=== PATIENT | female | born 1975 | race Caucasian/White ===

== ENCOUNTER 2018-09-08 13:56 | Emergency (ER) | payer OTHER ==
--- NOTE | 2018-09-08 14:07 | UC ---
Back Pain HPI - HPI Summary HPI Summary: 42 yo female presents with with left flank pain radiating into LLQ since last night. She tells me that she has a hx of kidney stones, but this doesn't quite feel the same. She feels that when she urinates she has a burning sensation and that she is not emptying her bladder. Her pain began suddenly last night without injury. She did have popcorn last night at the movie theater. Currently she feels "bloated" and like passing gas would help her discomfort. Her last BM was yesterday morning, feels like she has to go, but cannot currently. She does not get her period anymore and denies vaginal discharge or bleeding. She does not have an appetite due to pain. Denies fever, chills, recent illness, SOB, chest pain, n/v. - History of Current Complaint Stated Complaint: LOWER BACK PAIN Time Seen by Provider: 09/08/18 14:06 Hx Obtained From: Patient Onset/Duration: Sudden Onset Severity Initially: Severe Severity Currently: Severe Pain Intensity: 7 Pain Scale Used: 0-10 Numeric - Allergies/Home Medications Allergies/Adverse Reactions: Allergies Allergy/AdvReac Type Severity Reaction Status Date / Time iv contrast dye Allergy Anaphylatic Uncoded 09/08/18 14:12 Shock Home Medications: Home Medications Acetaminophen TAB* [Tylenol TAB*] 650 mg PO Q4H PRN 09/08/18 [History Confirmed 09/08/18] PMH/Surg Hx/FS Hx/Imm Hx - Additional Past Medical History Additional PMH: Kidney stones - Surgical History Surgical History: None - Family History Known Family History: Positive: None - Social History Occupation: Employed Full-time Lives: With Family Alcohol Use: Occasionally Substance Use Type: None Smoking Status (MU): Never Smoked Tobacco Review of Systems Constitutional: Negative Skin: Negative Respiratory: Negative Cardiovascular: Negative Gastrointestinal: Abdominal Pain - LLQ Genitourinary: Dysuria, Other - left flank pain Motor: Negative Musculoskeletal: Negative Neurological: Negative Psychological: Negative All Other Systems Reviewed And Are Negative: Yes Physical Exam - Summary Physical Exam Summary: GENERAL: NAD. Moderate pain distress. Unable to sit still due to discomfort SKIN: No rashes, sores, lesions, or open wounds. NECK: Supple. Nontender. No lymphadenopathy. CHEST: CTAB. No r/r/w. No accessory muscle use. Breathing comfortably and in no distress. CV: RRR. Without m/r/g. Pulses intact. Cap refill <2seconds ABDOMEN: Soft. Mild LLQ TTP. No distention or guarding. Mild left CVA/flank TTP. Bowel sounds present MSK: NTTP over lumbar paraspinal muscles. Negative SLR. Negative UYMIKO for back pain b/l. Strength 5/5 B/L LEs including dorsiflexion and plantar flexion. FROM B/L LEs. No edema. NEURO: Alert. Sensations intact B/L LEs L3-S1. PSYCH: Age appropriate behavior. Triage Information Reviewed: Yes Vital Signs: Vital Signs: Temp Pulse Resp BP Pulse Ox 97.5 F 65 16 127/81 96 09/08/18 14:01 09/08/18 14:01 09/08/18 14:01 09/08/18 14:01 09/08/18 14:01 Laboratory Tests 09/08/18 14:17 POC Urine Color Yellow POC Urine Clarity Clear POC Urine pH 5.5 POC Ur Specif [place] >= 1.030 POC Urine Protein Negative POC Ur Glucose (UA) Negative POC Urine Ketones Negative POC Urine Blood Negative POC Urine Nitrite Negative POC Urine Bilirubin Negative POC Urine Urobilinogen 1.0 POC U Leukocyte Esteras Negative Vital Signs Reviewed: Yes Back Pain Course/Dx - Course Course Of Treatment: She has not taken anything for her discomfort today. She was given 60mg IM toradol and a CT ab/pelvis w/o contrast was ordered for suspicion of kidney stone vs diverticulitis. Pt has a hx of anaphylaxis to IV contrast dye. CT: IMPRESSION: 1. SMALL NONOBSTRUCTIVE STONE OF THE LOWER POLE OF THE RIGHT KIDNEY. 2. LEFT OVARIAN CYST. 3. FOCAL INFLAMMATORY CHANGE OF THE RIGHT POSTERIOR FLANK IN THE SUBCUTANEOUS SOFT. TISSUES, OF UNCERTAIN CLINICAL SIGNIFICANCE. On re-eval; mild relief of pain with toradol, but still unable to sit still due to pain. Discussed with Dr. Collazo. I have a mild suspicion for an ovarian torsion vs rupture of her ovarian cyst. Will order for U/S at this time. Call from Dr. Shah - he notes that the uterus is bulbous appearing and is suspecting fibroids or adenomyosis. Offical US read: IMPRESSION : Heterogeneous uterus consistent with myomatous change without discrete. fibroid. Complex cyst in the left ovary measured to 2.8 cm. Doppler flow is noted in both ovaries. The US tech tells me that during the transvaginal exam, pt had left cervical motion tenderness that reproduced her left flank pain. I discussed this with the pt and she verified this pain. She is refusing a pelvic exam at this time as she just had the ultrasound and says she has no discharge or abnormal vaginal symptoms. She does tell me that 2 weeks ago she had a routine PAP done by her PCP which was normal per pt. 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 She is declining a pelvic exam or GC/C testing today, but I will treat her with doxycycline and flagyl to cover for PID. Strongly advised to go to the ED if she develops a fever or worsening symptoms, otherwise f/u with her OBGYN next week for a recheck. Pt voiced understanding and is agreeable to the plan. - Differential Dx/Diagnosis Provider Diagnoses: Left flank pain. Left pelvic pain. Hx of kidney stone Discharge - Sign-Out/Discharge Documenting (check all that apply): Patient Departure All imaging exams completed and their final reports reviewed: Yes - Discharge Plan Condition: Stable Disposition: HOME Prescriptions: DOXYcycline CAP(*) [DOXYcycline 100MG CAP(*)] 100 mg PO BID #28 cap metroNIDAZOLE [Flagyl 500 MG TAB] 500 mg PO BID #28 tab Patient Education Materials: Pelvic Inflammatory Disease (DC) Referrals: Yarelis CHRISTINE,Cookie Mendoza [Primary Care Provider] - Additional Instructions: If you develop a fever, shortness of breath, chest pain, new or worsening symptoms - please call your PCP or go to the ED. 1) Please call your OBGYN to schedule a follow up appointment as soon as possible 2) If you develop new or worsening symptoms - please go to the ER - Billing Disposition and Condition Condition: STABLE Disposition: Home
[2018-09-08] MEDS ORDERED: Ketorolac INJ* 60 MG/2 ML VIAL IM ONE (14:30)
--- NOTE | 2018-09-08 15:15 | RAD ---
CLINICAL HISTORY: LLQ pain and left flank pain. ?stone vs divertic COMPARISON: None TECHNIQUE: Multiple contiguous axial CT scans were obtained of the abdomen and pelvis, without intravenous contrast enhancement. Coronal and sagittal multiplanar reformations are submitted for review. Oral contrast was not administered. FINDINGS: LUNG BASES: The lung bases are clear. LIVER: The liver is normal in shape, size, contour, and attenuation. BILE DUCTS: There is no intrahepatic or extrahepatic biliary dilatation. GALLBLADDER: The gallbladder is not visualized. Surgical clips are noted in the gallbladder fossa. PANCREAS: The pancreas is normal, without mass or ductal dilatation. SPLEEN: Normal in size and appearance. UPPER GI TRACT: Evaluation of the gastrointestinal tract is limited by incomplete gastric distention. There is postsurgical change to the projected tract. SMALL BOWEL AND MESENTERY: The small bowel is normal in contour, course, and caliber. There is no obstruction or dilatation. COLON: The colon is normal in contour, course, caliber. There is no pericolonic inflammatory change. ADRENALS: Normal bilaterally. KIDNEYS: There is a plantar calculus of the lower pole of the right kidney measuring 0.2 cm. There is no appreciable hydronephrosis or nephrolithiasis. BLADDER: The bladder is smooth in contour. PELVIC ORGANS: There is a left ovarian cyst measuring approximately 2.6 cm. The uterus and adnexa are otherwise grossly normal for technique. AORTA: The aorta is normal. IVC: Unremarkable LYMPH NODES: There is no lymphadenopathy by size criteria. ABDOMINAL WALL: There is no evidence for abdominal wall hernia. BONES AND SOFT TISSUES: There is focal inflammatory change within the soft tissues of the right flank posteriorly, measuring 3.1 cm best seen on axial image 50. OTHER: None IMPRESSION: 1. SMALL NONOBSTRUCTIVE STONE OF THE LOWER POLE OF THE RIGHT KIDNEY. 2. LEFT OVARIAN CYST. 3. FOCAL INFLAMMATORY CHANGE OF THE RIGHT POSTERIOR FLANK IN THE SUBCUTANEOUS SOFT TISSUES, OF UNCERTAIN CLINICAL SIGNIFICANCE.
--- NOTE | 2018-09-08 16:45 | RAD ---
Indication: Left flank pain, pelvic pain. Real-time sonography of the pelvis was performed utilizing endovaginal technique. The uterus measures 10.1 x 6.1 x 7.6 cm. Endometrial echo measures 0.4 cm. Heterogeneous echotexture of the myometrium is noted. Right ovary measures 3.0 x 1.7 x 1.6 cm. Left ovary measures 4.4 x 2.6 x 2.4 cm. Complex left ovarian cyst measuring 2.8 x 2.2 x 1.7 cm. This likely represents a hemorrhagic cyst. Doppler interrogation demonstrates flow in both ovaries. IMPRESSION: Heterogeneous uterus consistent with myomatous change without discrete fibroid. Complex cyst in the left ovary measured to 2.8 cm. Doppler flow is noted in both ovaries.
[2018-09-08 17:11] VITALS: BP 125/79
== END 2018-09-08 17:11 | disposition home or self-care (01) ==
LOC: UCEAST 13:56
DX: M54.5 Low back pain (principal); R10.2 Pelvic and perineal pain; R10.32 Left lower quadrant pain; N20.0 Calculus of kidney; Z87.442 Personal history of urinary calculi; N83.202 Unspecified ovarian cyst, left side; Z91.041 Radiographic dye allergy status
CPT/HCPCS: 74176; 76830; 81003; 96372; 99212; G0463; J1885